=== PATIENT | female | born 1985 | race Caucasian/White ===

== ENCOUNTER 2022-06-22 16:48 | Emergency (ER) | payer OTHER, SELFPAY ==
--- NOTE | 2022-06-22 17:28 | ED.URI ---
HPI - URI/Sore Throat General Chief Complaint: Upper Respiratory Infection Stated Complaint: headache,sorethroat,nasal drainage Time Seen by Provider: 06/22/22 17:29 Source: patient and RN notes reviewed Mode of arrival: ambulatory Limitations: no limitations History of Present Illness HPI Narrative: 37-year-old diabetic female presenting for complaint of sore throat, sinus congestion, cough, and bilateral ear pain with left-sided drainage and muffled hearing. symptoms started about 1 week ago. She denies shortness of breath, wheezing, nausea, vomiting, diarrhea, fever or chills. She is a current 1 pack per day smoker. She has taken Sudafed for symptoms. MD elicited complaint: cough Related Data Home Medications Medication Instructions Recorded Confirmed albuterol sulfate 90 mcg/actuation 1 puff inhalation PRN PRN 06/22/22 06/22/22 aerosol inhaler Shortness Of Breath diclofenac sodium 50 mg 50 mg PO DAILY 06/22/22 06/22/22 tablet,delayed release empagliflozin 25 mg tablet 25 mg PO DAILY 06/22/22 06/22/22 (Jardiance) gabapentin 100 mg capsule 100 mg PO DAILY 06/22/22 06/22/22 insulin glargine U-300 conc 300 80 unit subcut HS 06/22/22 06/22/22 unit/mL (3 mL) subcutaneous pen (Toujeo Max U-300 SoloStar) metformin 1,000 mg tablet 1,000 mg PO BID 06/22/22 06/22/22 semaglutide 1 mg/dose (4 mg/3 mL) 1 mg subcut WEEKLY 06/22/22 06/22/22 subcutaneous pen injector (Ozempic) spironolactone 50 mg tablet 150 mg PO DAILY 06/22/22 06/22/22 Allergies Allergy/AdvReac Type Severity Reaction Status Date / Time No Known Allergies Allergy Verified 06/22/22 17:10 Review of Systems Review of Systems: CONSTITUTIONAL: Denies malaise, chills, sweats, fever EYES: Denies visual changes, redness, or discharge ENT: Reports rhinorrhea, congestion, otalgia CARDIOVASCULAR: Denies chest pain, palpitations, edema RESPIRATORY: Reports cough Denies dyspnea GASTROINTESTINAL: Denies abdominal pain, nausea, vomiting, diarrhea SKIN: Denies rash or itching MUSCULOSKELETAL: denies myalgia NEUROLOGIC: Denies headache Exam Narrative: GENERAL: Ill-appearing, nontoxic EYES: PERRLA, conjunctivae clear ENT: Mucous membranes moist. Right TM erythematous with purulent effusion; Left canal erythematous with yellow drainage TM unable to visualize; no tragal tenderness. Oropharynx erythematous without lesions or exudate CHEST: Clear to auscultation, breath sounds equal. No wheezing, rhonchi, rales, or stridor. HEART: Regular rate and rhythm. No murmur heard. SKIN: Warm, dry, no rash. NEURO: Alert and oriented x3. PSYCH: Normal mood and affect Course Course Emergency Course: Patient is aware of diagnosis, understands and agrees to treatment plan. Anticipatory guidance given. Patient agrees to follow-up as directed and is aware of reasons to seek care at the emergency department. Portions of this record may have been created with voice recognition software Level of Care: Express Care Visit Vital Signs Vital signs: reviewed MDM - URI/Sore Throat MDM Narrative Medical decision making narrative: Advised supportive measures and signs/symptoms to go to the ER. Pt is appropriate for outpt treatment and f/u. Differential Diagnosis Differential diagnosis: Likely upper respiratory infection, otitis media, sinusitis, viral infection, bronchitis and pharyngitis Discharge Plan Discharge Clinical Impression: Otitis media, Otitis externa Patient Disposition: Home, Self-Care Condition: Stable Instructions: Ear Infection (ED) Additional Instructions: Take antibiotics and drops as directed. Recommend antihistamine such as Benadryl, Zyrtec or Edelmira for sinus congestion Flonase nasal spray, 1 spray in each nostril once daily until symptoms improve Symptomatic treatment includes: rest, fluids, and increase humidity of the air at home. Tylenol 1000mg every 8 hours as needed to reduce fever, pain Avoid water in the ears for
[2022-06-22 17:53] VITALS: BP 119/74; PULSE 118; RESP 20; TEMP 36.9; O2SAT 98
== END 2022-06-22 17:44 | disposition home or self-care (01) ==
PROVIDERS: Emergency Provider Nurse Practitioner Family; PCP Family Medicine
DX: H66.91 Otitis media, unspecified, right ear (principal); H60.92 Unspecified otitis externa, left ear; F17.200 Nicotine dependence, unspecified, uncomplicated
CPT/HCPCS: 99213; G0463